=== PATIENT | female | born 1965 | race Caucasian/White ===

== ENCOUNTER → 2024-06-06 13:09 | Outpatient (REF) | payer OTHER, SELFPAY | LOC: RAD 13:09 | PROVIDERS: ATTENDING PHYSICIAN Nurse Practitioner Adult Health; FAMILY PHYSICIAN Family Medicine | DX: N39.0 Urinary tract infection, site not specified (principal) | CPT/HCPCS: 76770 ==

== ENCOUNTER → 2024-06-28 18:45 | Outpatient (REF) | payer OTHER, SELFPAY | LOC: WDC 18:45 | PROVIDERS: ATTENDING PHYSICIAN Obstetrics & Gynecology Gynecology; FAMILY PHYSICIAN Family Medicine | DX: Z12.31 Encounter for screening mammogram for malignant neoplasm of breast (principal); Z12.39 Encounter for other screening for malignant neoplasm of breast | CPT/HCPCS: 77063; 77067 ==

== ENCOUNTER → 2024-11-23 07:52 | Outpatient (REF) | payer OTHER, SELFPAY | LOC: HWRAD 07:52 | PROVIDERS: ATTENDING PHYSICIAN Obstetrics & Gynecology Gynecology; FAMILY PHYSICIAN Family Medicine | DX: R10.2 Pelvic and perineal pain (principal) | CPT/HCPCS: 76830; 76856 ==

== ENCOUNTER → 2024-12-29 08:51 | Outpatient (REF) | payer OTHER, SELFPAY | LOC: HWRAD 08:51 | PROVIDERS: ATTENDING PHYSICIAN Internal Medicine Rheumatology; FAMILY PHYSICIAN Family Medicine | DX: M54.50 Low back pain, unspecified (principal); M79.7 Fibromyalgia; R10.2 Pelvic and perineal pain | CPT/HCPCS: 72110 ==

== ENCOUNTER → 2025-01-11 19:37 | Outpatient (REF) | payer OTHER, SELFPAY | LOC: MRI 3T 19:37 | PROVIDERS: ATTENDING PHYSICIAN Obstetrics & Gynecology; FAMILY PHYSICIAN Family Medicine | DX: R10.2 Pelvic and perineal pain (principal); M54.16 Radiculopathy, lumbar region | CPT/HCPCS: 72148; 72197; A9575 ==

== ENCOUNTER 2025-03-19 06:24 | Day surgery (SDC) | payer OTHER, SELFPAY | END 2025-03-19 11:19 | disposition home or self-care (01) | LOC: GI 06:24 | PROVIDERS: ATTENDING PHYSICIAN Internal Medicine | DX: Z12.11 Encounter for screening for malignant neoplasm of colon (principal); D12.2 Benign neoplasm of ascending colon; K63.5 Polyp of colon; K64.9 Unspecified hemorrhoids; K63.89 Other specified diseases of intestine | CPT/HCPCS: 45380; 88305 ==

== ENCOUNTER → 2025-07-05 08:55 | Outpatient (REF) | payer OTHER, SELFPAY | LOC: WDC 08:55 | PROVIDERS: ATTENDING PHYSICIAN Obstetrics & Gynecology Gynecology; FAMILY PHYSICIAN Family Medicine | DX: Z12.31 Encounter for screening mammogram for malignant neoplasm of breast (principal) | CPT/HCPCS: 77063; 77067 ==